=== PATIENT | male | born 1995 | race Caucasian/White ===

== ENCOUNTER → 2017-01-27 | Outpatient (CLI) | payer BC ==
--- NOTE | 2017-01-27 16:17 | KCIC ---
MRI Brain without contrast History: Essential tremors getting worse Technique: Multiplanar, multisequential noncontrast MR imaging was performed of the brain. Contrast: None Comparison: None Findings: There is some motion degradation, some images repeatedThere is no evidence of recent infarct or cytotoxic edema. The ventricles, sulci, and cisterns are within normal limits in size and configuration. There is no significant midline shift, intraaxial mass effect, or focal abnormal extra-axial fluid collection. There is no significant signal abnormality including hemosiderin deposition of the brain parenchyma. There is preservation of the major intracranial flow-voids at the skull base. The mastoid air cells are aerated. The cerebellar tonsils are normal in location. There is no significant abnormality of the pineal gland or pituitary gland. There is patchy very minimal ethmoid air cell and frontal sinus mucosal thickening. There is hypertrophy and mucosal thickening of the left middle and inferior turbinates. There is preserved marrow signal of the clivus. Impression: 1. There is no significant intracranial abnormality. Electronically signed by: Philip Ba MD (01/27/2017 4:13 PM) [id number]
== END | disposition home or self-care (01) ==
LOC: KCIC MRI 15:09
PROVIDERS: ATTEND Family Medicine
DX: G25.0 Essential tremor (principal)
CPT/HCPCS: 70551